=== PATIENT | male | born 1935 | race Caucasian/White ===

== ENCOUNTER 2018-08-17 12:41 | Outpatient (CLI) | payer MEDICARE | END 2018-08-17 12:42 | disposition home or self-care (01) | LOC: ULT 12:41 | PROVIDERS: ATTEND Internal Medicine Cardiovascular Disease | DX: I48.1 Persistent atrial fibrillation (principal); R53.83 Other fatigue; I08.8 Other rheumatic multiple valve diseases | CPT/HCPCS: 93306 ==

== ENCOUNTER 2020-03-14 12:14 | Outpatient (CLI) | payer MEDICARE ==
--- NOTE | 2020-03-14 13:35 | RAD ---
CHEST 2 VIEWS: Date: 03/14/2020 HISTORY: Atrial fibrillation. COMPARISON: 06/26/2014. FINDINGS: Stable moderate right hemidiaphragm elevation. Left ICD. Arthrosis changes of both shoulder joints an d postoperative changes on the right. No confluent pneumonia, overt edema, or pleural effusion. Bone demineralization. IMPRESSION: Stable appearing chronic lung changes. Right hemidiaphragm elevation, stable. No significant new proc ess. POS: RRE
== END 2020-03-14 12:15 | disposition home or self-care (01) ==
LOC: BICRAD 12:14
PROVIDERS: ATTEND Internal Medicine Cardiovascular Disease
DX: I48.91 Unspecified atrial fibrillation (principal)
CPT/HCPCS: 71046